=== PATIENT | male | born 1965 | race Caucasian/White ===

== ENCOUNTER 2017-11-08 10:15 | Inpatient (IN) | payer MEDICAID ==
[2017-11-08] MEDS ORDERED: MAGNESIUM HYDROXIDE SUSP 30 ML CUP PO PRN (23:30)
[2017-11-08] MEDS ORDERED: SODIUM CHLORIDE 0.9% FLUSH 10 ML FLUSH IV FLUSH PRN (23:30)
[2017-11-08] MEDS ORDERED: SENNOSIDES 8.6 MG TAB PO PRN (23:30)
[2017-11-08] MEDS ORDERED: ACETAMINOPHEN 325 MG TAB PO PRN (23:30)
[2017-11-08] MEDS ORDERED: BISACODYL 10 MG SUPP RECTAL PRN (23:30)
[2017-11-08] MEDS ORDERED: NALOXONE HCL 0.4 MG/ML AMP IV PUSH PRN (23:30)
[2017-11-08] MEDS ORDERED: LACTULOSE SYRUP 20 GM/30 ML CUP PO PRN (23:30)
[2017-11-09] MEDS ORDERED: ENOXAPARIN SODIUM 40 MG/0.4 ML SYRINGE SQ SCH
[2017-11-09] MEDS ORDERED: AZITHROMYCIN INJ 500 MG in SODIUM CHLOR 0.9% 250 ML INJ 250 ML IV SCH (01:00)
[2017-11-09] MEDS: CEFEPIME INJ 2,000 MG in SODIUM CHLORIDE 0.9% INJ 100 ML IV SCH ×2 (02:00→14:00)
[2017-11-09] MEDS ORDERED: SODIUM CHLORIDE 0.9% FLUSH 10 ML FLUSH IV FLUSH SCH (09:00)
[2017-11-09] MEDS ORDERED: LIDO1PAD52 TOPICAL (09:31)
[2017-11-09] MEDS ORDERED: VITA100021 IM (09:31)
[2017-11-09] MEDS ORDERED: DULO1CAP2 PO (09:31)
[2017-11-09] MEDS ORDERED: HYDR50TA94 PO (09:31)
[2017-11-09] MEDS ORDERED: ALBUAER3 INH (09:31)
[2017-11-09] MEDS ORDERED: ALPR.5 PO (09:31)
[2017-11-09] MEDS ORDERED: SERO300T PO (09:31)
[2017-11-09] MEDS ORDERED: EFFE150C PO (09:31)
[2017-11-09] MEDS ORDERED: CELE200C PO (09:31)
[2017-11-09] MEDS ORDERED: ALBU0.63 NEB (09:31)
[2017-11-09] MEDS ORDERED: ADDE30TA PO (09:31)
[2017-11-09] MEDS ORDERED: PERC10TA27 PO (09:31)
[2017-11-09] MEDS ORDERED: OMEP40CA2 (09:31)
[2017-11-09] MEDS ORDERED: ADVA250A INH (09:31)
[2017-11-09] MEDS ORDERED: REME30TA PO (09:31)
[2017-11-09] MEDS ORDERED: LEVO150T7 PO (09:31)
[2017-11-09] MEDS ORDERED: VENL75TA PO (09:31)
[2017-11-09 10:55] VITALS: BP 133/78; PULSE 78; RESP 21; TEMP 97.8; O2SAT 92
[2017-11-09 11:10] VITALS: O2SAT 88
[2017-11-09 11:20] VITALS: O2SAT 98
[2017-11-09] MEDS ORDERED: RESP: ALBUTEROL 2.5 MG/IPRATROPIUM 0.5 MG NEB (PRN) NEB (11:45)
[2017-11-09] MEDS ORDERED: guaiFENesin E.R. 600 MG TAB PO SCH (11:45)
[2017-11-09] MEDS ORDERED: methylPREDNISolone SOD SUCC 40 MG/1 ML VIAL IV PUSH SCH (12:00)
--- NOTE | 2017-11-09 12:36 | HHI.HP ---
[facility] Unknown Admission Diagnosis Diagnoses: Travel History International Travel<30 Days: No Contact w/Intl Traveler <30 Da: No History of Present Illness Written by Marcin Page, acting as scribe for Dr. Ayala on 11/09/17 at 12: 35. 52-year-old male with known history of throat cancer status post tracheostomy, PEG tube, history of tobacco use with chronic objective pulmonary disease, chronic pain, anxiety, depression who presented to hospital because he was getting decrease in O2 saturation readings at home. Patient was just recently admitted and treated for pneumonia at [facility] where he was indicated that he was there for 4 days and was discharged home on oral antibiotics. Apparently patient is only taken 2-3 days worth of antibiotics and he has been having increased cough with thick mucus production. He does check his O2 sats regularly at home with his own meter and he states that they are in the 70's. Patient presented to the emergency department in [place] and underwent full workup without any acute findings. Lowest O2 saturation was documented was 88% on room air. Because of that reason the ER physician recommended the patient be observed in the hospital for further evaluation and management. Patient states that he still has a productive cough which is thick mucus. He denied any fever or chills. Review of Systems Respiratory: COMPLAINS OF: Cough, Sputum production Except as stated in HPI: all other systems reviewed are Neg Past Family Social History Past Medical History History of head neck cancer, Chronic pain Anxiety/depression History of tobacco abuse Chronic objective pulmonary disease Hypothyroidism Past Surgical History Surgical resection of head neck cancer Tracheostomy PEG tube Reported Medications Reported Meds & Active Scripts Active Medrol Dosepak (Methylprednisolone) 4 Mg Dspk 4 Mg PO DIRECTED Per Pharmacist direction [zelalemaiFENesin ER] 600 MG Tabcr 600 Mg PO BID [address] (Duloxetine HCl) 30 Mg Capdr 30 Mg PO DAILY Omeprazole 40 Mg Cap 40 Mg DAILY Celebrex (Celecoxib) 200 Mg Cap 200 Mg PO BID Levothyroxine (Levothyroxine Sodium) 150 Mcg Tab 150 Mcg PO DAILY Advair Diskus Inh (Fluticasone-Salmeterol Inh) 250-50 Mcg/Blist Aer 1 Puff INH BID Rinse mouth after use. Vitamin B-12 (Cyanocobalamin) 1,000 Mcg Subl 1,000 Mcg IM DAILY Seroquel (Quetiapine Fumarate) 300 Mg Tab 300 Mg PO HS Hydroxyzine HCl 50 Mg Tab 50 Mg PO BID Proair Hfa 8.5 GM Inh (Albuterol Sulfate) 90 Mcg/Act Aer 2 Puff INH Q4-6H PRN 108 mcg/actuation Lidocaine Patch 12 HR (Lidocaine) 5 % Patch 2 Patch TOPICAL DAILY Remove patch after 12 hours Albuterol Neb (Albuterol Sulfate) 0.63 Mg/3 Ml Neb 0.63 Mg NEB Q6HR NEB PRN Percocet (Oxycodone-Acetaminophen) 10-325 mg Tab 1 Tab PO Q4H PRN Xanax (Alprazolam) 0.5 Mg Tab 0.5 Mg PO Q4H PRN Remeron (Mirtazapine) 30 Mg Tab 30 Mg PO HS Adderall (Amphetamine-Dextroamphetamine) 30 Mg Tab 30 Mg PO BID Avoid late evening doses. Space doses at least 4 to 6 hours if more than once/day dosing. Effexor XR 24 HR (Venlafaxine HCl) 150 Mg Cap 150 Mg PO DAILY Effexor (Venlafaxine HCl) 75 Mg Tab 75 Mg PO Q12H Allergies: Coded Allergies: No Known Allergies (Unverified , 11/08/17) Family History Family history was reviewed and significant for brother with diabetes Social History Patient quit smoking 6 years ago, prior to that he smoked 1 pack of cigarettes for over 40 years. Does have history of cocaine use, however he states that none recently. Denies any alcohol use Physical Exam Vital Signs Vital Signs Date Time Temp Pulse Resp B/P (MAP) Pulse Ox O2 Delivery O2 Flow Rate FiO2 11/09/17 11:20 98 Trach Collar 28 11/09/17 11:10 88 21 11/09/17 10:55 97.8 78 21 133/78 (96) 92 Physical Exam GENERAL: Well-developed, well-nourished, in no acute distress. alert and orientated HEENT: Head is normocephalic without any lesions or masses noted. Facial features are symmetric. Eyes: Pupils equal round reactive to light. Extraocular muscles are intact. Conjunctivae were clear. Oropharyngeal: Pharynx without any erythema edema. Tongue is midline without deviation. Buccal mucosa is moist without any masses or lesions NECK: Patient with obvious deformity around his neck with tracheostomy. CARDIAC: Regular rhythm, regular rate. S1/S2 are heard. No murmurs gallops or rubs. LUNGS: Wheeze noted bilaterally, no rhonchi or rales. No use of accessory muscles on inspiration or expiration. ABDOMEN: Soft, nontender. Nondistended. Bowel sounds heard in all 4 quadrants. No organomegaly or masses. Negative rebound, negative guarding. PEG tube noted EXTREMITIES: No edema, pulses are equal bilaterally. No cyanosis or clubbing NEUROLOGY: Mood and affect appear appropriate. Cranial nerves II through XII grossly intact. Muscle strength 5/5 in upper and lower extremities bilaterally. Deep tendon reflexes are 2+ in upper and lower extremities bilaterally. Caprini VTE Risk Assessment Caprini VTE Risk Assessment: No/Low Risk (score <= 1) Caprini Risk Assessment Model Point Value = 1 Point Value = 2 Point Value = 3 Point Value = 5 Age 41-60 Minor surgery BMI > 25 kg/m2 Swollen legs Varicose veins or History of unexplained or recurrent spontaneous Oral contraceptives or hormone replacement Sepsis (< 1 month) Serious lung disease, including pneumonia (< 1 month) Abnormal pulmonary function Acute myocardial infarction Congestive heart failure (< 1 month) History of inflammatory bowel disease Medical patient at bed rest Age 61-74 Arthroscopic surgery Major open surgery (> 45 min) Laparoscopic surgery (> 45 min) Malignancy Confined to bed (> 72 hours) Immobilizing plaster cast Central venous access Age >= 75 History of VTE Family history of VTE Factor V Leiden Prothrombin [id number] Lupus anticoagulant Anticardiolipin antibodies Elevated serum homocysteine Heparin-induced thrombocytopenia Other congenital or acquired thrombophilia Stroke (< 1 month) Elective arthroplasty Hip, pelvis, or leg fracture Acute spinal cord injury (< 1 month) Prophylaxis Regimen Total Risk Factor Score Risk Level Prophylaxis Regimen 0-1 Low Early ambulation 2 Moderate Order ONE of the following: *Sequential Compression Device (SCD) *Heparin 5000 units SQ BID 3-4 Higher Order ONE of the following medications: *Heparin 5000 units SQ TID *Enoxaparin/Lovenox 40 mg SQ daily (WT < 150 kg, CrCl > 30 mL/min) *Enoxaparin/Lovenox 30 mg SQ daily (WT < 150 kg, CrCl > 10-29 mL/min) *Enoxaparin/Lovenox 30 mg SQ BID (WT < 150 kg, CrCl > 30 mL/min) AND/OR *Sequential Compression Device (SCD) 5 or more Highest Order ONE of the following medications: *Heparin 5000 units SQ TID (Preferred with Epidurals) *Enoxaparin/Lovenox 40 mg SQ daily (WT < 150 kg, CrCl > 30 mL/min) *Enoxaparin/Lovenox 30 mg SQ daily (WT < 150 kg, CrCl > 10-29 mL/min) *Enoxaparin/Lovenox 30 mg SQ BID (WT < 150 kg, CrCl > 30 mL/min) AND *Sequential Compression Device (SCD) Assessment and Plan Assessment and Plan 52-year-old male who presented to the emergency department for evaluation because of low oxygen saturations on his home machine Chronic obstructive pulmonary disease with possible mild exacerbation -Chest x-ray and CT scans do not indicate any acute abnormality, CT scan does show some diffuse areas of interstitial disease, consolidation which is nonspecific -Respiratory therapist evaluated the patient and was able to suction copious amount of thick secretions with improvement of his O2 saturations -Continue O2 supplementation maintain O2 sats greater than 88% -Duo nebs every 6 hours while awake and every 2 hours as needed -Solu-Medrol 60 mg IV every 6 hours -Symbicort 1 inhalation twice daily -Mucinex 600 mg twice daily -Patient clinically improved with no acute finding at this time. Patient did improve after suctioning of the secretions. Patient was instructed that he can be discharged home to continue his antibiotics are given to him by [facility]. We will also discharge patient home with Medrol Dosepak, we instructed that he use his nebulizer at least 4-6 times daily. Patient also instructed that he needs to find a intern product marketing manager where he lives to hopefully reduce the amount of times that he has to go to the hospital for treatment. Discharge disposition Discharge home in stable condition Activity: Ad maggi. Diet: Tube feeding Medication per medication reconciliation Follow-up with primary medical doctor in 1 week This note was transcribed by gato Page. I, Dr. Anil Ayala personally performed the history, physical exam, and medical decision making; and confirmed the accuracy of the information in the transcribed note. Authenticated by Dr. Anil Ayala on 11/09/17 at 12:35. Code Status Full code Marcin Page November 09, 2017 12:36 Anil Ayala MD November 09, 2017 12:39
[2017-11-09] MEDS ORDERED: guaiFENesin ER PO (12:55)
[2017-11-09] MEDS ORDERED: MEDR4PAK PO (12:55)
--- NOTE | 2017-11-09 12:56 | HHI.DCPOC ---
Discharge Care Plan Diagnosis: (1) COPD (chronic obstructive pulmonary disease) Goals to Promote Your Health * To prevent worsening of your condition and complications * To maintain your health at the optimal level Directions to Meet Your Goals Take your medications as prescribed Follow your dietary instruction Follow activity as directed Keep your appointments as scheduled Take your immunizations and boosters as scheduled If your symptoms worsen call your PCP, if no PCP go to Urgent Care Center or Emergency Room Smoking is Dangerous to Your Health. Avoid second hand smoke Call the 24-hour hour crisis hotline for domestic abuse at Marcin Page November 09, 2017 12:56
[2017-11-09 12:57] VITALS: BP 133/78; PULSE 78; RESP 21; TEMP 97.8; O2SAT 92
[2017-11-09] MEDS: RESP: ALBUTEROL 2.5 MG/IPRATROPIUM 0.5 MG NEB (SCH) NEB ×3 (14:00→15:12)
== END 2017-11-09 16:06 | disposition home or self-care (01) | DRG 192 ==
LOC: NEDDLT 10:15 → OBSVTOIN 11-09 10:25 → PH3B 11-09 10:25
PROVIDERS: ADMIT Hospitalist; ATTEND Hospitalist
DX: J44.1 Chronic obstructive pulmonary disease with (acute) exacerbation (principal); Z93.0 Tracheostomy status; Z93.1 Gastrostomy status; E03.9 Hypothyroidism, unspecified; G89.29 Other chronic pain; F32.9 Major depressive disorder, single episode, unspecified; F41.9 Anxiety disorder, unspecified; Z87.891 Personal history of nicotine dependence; Z85.819 Personal history of malignant neoplasm of unspecified site of lip, oral cavity, and pharynx
CPT/HCPCS: 94664; J2920